=== PATIENT | male | born 1960 | race Caucasian/White ===

== ENCOUNTER 2024-02-25 07:08 | Inpatient (IN) | payer BC ==
[2024-02-25] VITALS (92 sets, daily range): BP systolic 113–206; BP diastolic 72–156
[~2024-02-25] VITALS: Ht 170.2 cm; Wt 88.0 kg
[~2024-02-25 07:08] MED LIST: AMLODIPINE BESYL5 MG PO; AMOX/K CLAV875 M1 PO; ASPIRIN 81 LOW81 MG PO; ATORVASTATIN CA40 MG PO; LEVETIRACETAM500 MG PO; LOSARTAN POTASS50 MG PO; NORMODYNE/TRAN100 MG PO; PLAVIX75 MG PO
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
[2024-02-25] MEDS ORDERED: MIDAZOLAM HCL 2 MG/2 ML VIAL IV ONE (07:25)
[2024-02-25 07:34] LABS: BASO% 0.4 % (0-3); HEMATOCRIT 47.2 % (39.0-50.0); HEMOGLOBIN 15.9 g/dl (14.0-18.0); IMMATURE GRANULOCYTES 0.5 % (0.0-5.0); LYMPH% 29.7 % (15-41); MEAN CELL VOLUME 99.2 fL CALC (80.0-100.0); MEAN CORPUSCULAR HGB 33.4 pG CALC (26.0-32.0); MEAN CORPUSCULAR HGB CONC 33.7 g/dL CAL (32.0-36.0); MONO% 6.1 % (2-13); NEUT# 6.34 thou/uL (1.82-7.42); NEUT% 61.3 % (42-76); RED BLOOD COUNT 4.76 mill/uL (4.70-6.10); RED CELL DISTRI WIDTH 13.1 % (11.5-15.5)
[2024-02-25 07:35] LABS: URINE BILIRUBIN - DIPSTICK Negative (NEGATIVE); URINE BLOOD DIPSTICK Negative (NEGATIVE); URINE GLUCOSE - DIPSTICK 100 mg/dL (NEGATIVE); URINE KETONE 15 mg/dL (NEGATIVE); URINE LEUK ESTERASE Negative (NEGATIVE); URINE NITRITE - DIPSTICK Negative (Negative); URINE PH 5.5 (4.5-8.0); URINE PROTEIN - DIPSTICK 100 mg/dL (NEG-TRACE); URINE SPECIFIC GRAVITY >=1.030; URINE UROBILINOGEN - DIPSTICK 0.2 E.U./dL (0.2)
[2024-02-25] MEDS ORDERED: KETAMINE HCL 50 MG/ML 10 ML VIAL IV ONE (07:35)
[2024-02-25 07:37] LABS: URINE COLOR Yellow
[2024-02-25] MEDS ORDERED: PROPOFOL 100 ML IV ONE (07:40)
[2024-02-25] MEDS ORDERED: ROCURONIUM BROMIDE 10 MG/ML 5ML VIAL IV ONE (07:40)
[2024-02-25 07:46] LABS: ALBUMIN 4.3 g/dL (3.2-5.0); ALKALINE PHOSPHATASE 131 u/l (38-126); BUN 15 mg/dL (8-23); BUN/CREATININE RATIO 17 (12-20 (CALC)); CHLORIDE 105 mmol/l (95-108); CREATININE 0.9 mg/dL (0.7-1.3); ESTIMATED GFR 96 ML/MIN (>=90 (CALC)); ETHYL ALCOHOL 0 mg/dl (0-30); LIPASE 205 u/l (23-300); POTASSIUM 4.2 mmol/l (3.5-5.1); SGOT/AST 60 u/l (19-48); SODIUM 138 mmol/l (137-146); TOTAL PROTEIN 6.9 g/dL (6.3-8.2); URINE SQUAMOUS EPITHELIAL CELL RARE EPI/hpf (0-FEW); URINE WBC 0-2 WBC/hpf (0-5)
[2024-02-25 07:47] LABS: URINE HYALINE CAST FEW lpf (NONE-RARE)
--- NOTE | 2024-02-25 07:47 | NUR ---
PT INTUBATED BY DR.PITA DAIGLE AT THE SIDE. PT INTUBED WITH 7.5 TUBE 23 AT THE TEETH. PROPOFOL INITIATED BY THIS RN.
[2024-02-25 07:49] LABS: ANION GAP 17 (6-22 (CALC)); BILIRUBIN, TOTAL 0.9 mg/dL (0.2-1.3); CARBON DIOXIDE 20 mmol/l (22-30)
[2024-02-25] MEDS ORDERED: SODIUM CHLORIDE 0.9% 1,000 ML IV ONE (07:55)
[2024-02-25 08:19] LABS: PROTHROMBIN TIME 11.2 SECONDS (9.0-12.5)
--- NOTE | 2024-02-25 08:35 | NUR ---
PT TRANSPORTED TO CT WITH THIS NURSE AND RESPIRATORY AT BEDSIDE. PT TOLERATED WELL. NO DISTRESS NOTED. VSS. PT REMAINS INTUBATED WITH PROPOFOL AND IV FLUIDS INFUSING.
[2024-02-25] MEDS ORDERED: LABETALOL HCL 100 MG/20 ML VIAL IV ONE (09:15)
[2024-02-25] MEDS ORDERED: SODIUM CHLORIDE 0.9% 1,000 ML IV PRN (09:35)
--- NOTE | 2024-02-25 09:36 | NUR ---
ADVANCED ET TUBE 2CM PER . ET TUBE NOW AT THE 25CM COLTEN.
[2024-02-25] MEDS ORDERED: PROPOFOL 100 ML IV PRN (09:45)
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
--- NOTE | 2024-02-25 11:11 | NUR ---
BEDSIDE REPORT GIVEN TO ICU NURSE. CARE IS RELINQUISHED.
--- NOTE | 2024-02-25 11:18 | NUR ---
CARE OF PT ASSUMED. REPORT RECEIVED FROM ER NURSE. PT MOVED ONTO HOSPITAL BED WITH ASSISTANCE BY RT AND MOVED TO ROOM 15. SCD'S APPLIED. PT APPROPRIATELY SEDATED AT THIS TIME.
[2024-02-25] MEDS ORDERED: LEVETIRACETAM500 MG PO (11:40)
[2024-02-25] MEDS ORDERED: AMLODIPINE BESYL5 MG PO (11:40)
[2024-02-25] MEDS ORDERED: COZAAR50 MG PO (11:41)
[2024-02-25] MEDS ORDERED: ASPIRINCHW 81MG PO (11:41)
[2024-02-25] MEDS ORDERED: ATORVASTATIN CA20 MG PO (11:41)
[2024-02-25] MEDS ORDERED: PLAVIX75 MG PO (11:42)
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
--- NOTE | 2024-02-25 12:58 | NUR ---
PT SEEN BEDSIDE BY CHICA CONLEY.
[2024-02-25] MEDS ORDERED: hydrALAZINE HCL 20 MG/ML VIAL(1 ML) IV PRN (13:00)
--- NOTE | 2024-02-25 13:30 | NUR ---
SPOKE WITH PT'S SISTER, LILIANA, ON THE PHONE TO OBTAIN MORE PT INFORMATION.
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
--- NOTE | 2024-02-25 16:00 | NUR ---
NO CHANGES TO PT STATUS. TOLERATING CURRENT VENT AND SEDATION SETTINGS WELL. REPOSITIONED FOR COMFORT. ORAL CARE PROVIDED. VSS.
--- NOTE | 2024-02-25 18:00 | NUR ---
NO CHANGES TO PT STATUS. REPOSITIONED. ORAL CARE PROVIDED. TOLERATING CURRENT VENT AND SEDATION SETTINGS WELL. VSS.
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
[2024-02-25] MEDS ORDERED: ATORVASTATIN CALCIUM 20 MG/TAB PO SCH (21:00)
[2024-02-25] MEDS ORDERED: ENOXAPARIN SODIUM 40 MG/0.4 ML SYR SC SCH (21:00)
--- NOTE | 2024-02-25 22:10 | NUR ---
PROPOFOL ADJUSTED DUE TO PT BEING INCREASINGLY MORE ALERT, PULLING AT LINES, ETC. 1000 CC OUTPUT FROM CORREA.
[2024-02-26] VITALS (36 sets, daily range): BP systolic 110–163; BP diastolic 54–121
--- NOTE | 2024-02-26 00:19 | NUR ---
PT IS SEDATED, -2 RAAS. NOT PULLING AT LINES, ETC. AWAKE TO VERBAL/PAINFUL STIMULI.
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
[2024-02-26 05:17] LABS: HEMATOCRIT 45.4 % (39.0-50.0); HEMOGLOBIN 15.2 g/dl (14.0-18.0); MEAN CELL VOLUME 100.7 fL CALC (80.0-100.0); MEAN CORPUSCULAR HGB 33.7 pG CALC (26.0-32.0); MEAN CORPUSCULAR HGB CONC 33.5 g/dL CAL (32.0-36.0); RED BLOOD COUNT 4.51 mill/uL (4.70-6.10); RED CELL DISTRI WIDTH 13.5 % (11.5-15.5)
[2024-02-26 05:28] LABS: ALBUMIN 3.6 g/dL (3.2-5.0); BILIRUBIN, TOTAL 0.8 mg/dL (0.2-1.3); CREATININE 0.7 mg/dL (0.7-1.3); MAGNESIUM 2.2 mg/dL (1.6-2.3); POTASSIUM 3.8 mmol/l (3.5-5.1); TOTAL PROTEIN 6.1 g/dL (6.3-8.2)
--- NOTE | 2024-02-26 05:59 | NUR ---
MORNING CXR COMPLETED. PT RE-POSITIONED. WARM BLANKET APPLIED
--- NOTE | 2024-02-26 06:17 | NUR ---
RT HERE FOR MORNING ABG
--- NOTE | 2024-02-26 07:56 | NUR ---
REPORT RECEIVED FROM NIGHT NURSE. PT DID WELL OVERNIGHT, NO EPISODES OR ISSUES. PT SEEN BY DR. COTO THIS MORNING, ORDERS RECEIVED TO ATTEMPT TO WEAN AND EXTUBATE. PT DID WELL DURING WEANING AND FOLLOWED COMMANDS. EXTUBATED BY RT AT 0750. SATURATING 99% ON RA. TALKING AND HAS CALM DEMEANOR. PT RE-ORIENTED TO PLACE AND TIME. LUNG SOUNDS CLEAR. NO COUGH NOTED. HEART SOUNDS S1S2; NSR ON MONITOR. BS ACTIVE, ABDOMEN SOFT, NON-TENDER. PULSES STRONG ALL EXTREMETIES. DENIES ANY PAIN. RESTRAINTS REMOVED PRIOR TO EXTUBATION. VSS AT THIS TIME. GIVEN CALL LIGHT.
[2024-02-26] MEDS ORDERED: amLODIPine BESYLATE 5 MG/TAB PO SCH (09:00)
[2024-02-26] MEDS ORDERED: CLOPIDOGREL BISULFATE 75 MG/TAB TAB PO SCH (09:00)
[2024-02-26] MEDS ORDERED: LOSARTAN Potassium 50 MG/TAB PO SCH (09:00)
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
--- NOTE | 2024-02-26 11:00 | NUR ---
NO CHANGES TO PT STATUS. DOING WELL ON RA. ASLEEP IN BED. AGAIN, AFTER PT ROOMMATE LEFT PT CALMED DOWN QUICKLY. CALL LIGHT IN REACH. VSS.
--- NOTE | 2024-02-26 11:51 | NUR ---
PT HAD VISIT FROM BROTHER. GIVEN LUNCH TRAY. DENIES ANY NEEDS AT THIS TIME.
--- NOTE | 2024-02-26 12:45 | NUR ---
DR. COTO AT BEDSIDE TO SPEAK WITH PT. PT LIKELY TO BE DISCHARGED TOMORROW. PT AGREEABLE TO PLAN.
--- NOTE | 2024-02-26 14:00 | NUR ---
PER DR. COTO, PT DOWNGRADED TO MED-SURG STATUS. NO CHANGES TO PT STATUS. ASLEEP IN BED. CALL LIGHT AND BELONGINGS WITHIN REACH.
--- NOTE | 2024-02-26 17:09 | NUR ---
NO CHANGES TO PATIENT STATUS. REMAINS CALM. CALL LIGHT IN REACH. VSS.
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
--- NOTE | 2024-02-26 22:06 | NUR ---
PT AMBULATED TO , PT VOIDED, DENIED ANY BURNING OR PAIN DURING URINATION. PT HAS NO COMPLAINTS/NEEDS AT THIS TIME. PT NOW IN BED. V/S STABLE. CALL LIGHT IN REACH
[2024-02-27] VITALS (9 sets, daily range): BP systolic 130–151; BP diastolic 75–96
--- NOTE | 2024-02-27 00:10 | NUR ---
PT RESTING COMFORTABLY, NO COMPLAINTS/NEEDS AT THIS TIME. NO CHANGE IN PT STATUS. V/S STABLE. CALL LIGHT IN REACH
--- NOTE | 2024-02-27 02:00 | NUR ---
PT WAS UP TO BR, NO COMPLICATIONS. NO CHANGES NOTED. PT BACK IN BED. V/S STABLE. CALL LIGHT IN REACH
[2024-02-27 04:22] LABS: HEMOGLOBIN 13.4 g/dl (14.0-18.0); MEAN CELL VOLUME 97.7 fL CALC (80.0-100.0); MEAN CORPUSCULAR HGB 33.8 pG CALC (26.0-32.0); MEAN CORPUSCULAR HGB CONC 34.5 g/dL CAL (32.0-36.0); RED BLOOD COUNT 3.97 mill/uL (4.70-6.10); RED CELL DISTRI WIDTH 13.3 % (11.5-15.5)
[2024-02-27 04:23] LABS: HEMATOCRIT 38.8 % (39.0-50.0)
[2024-02-27 04:35] LABS: ALBUMIN 3.2 g/dL (3.2-5.0); CREATININE 0.8 mg/dL (0.7-1.3); MAGNESIUM 1.9 mg/dL (1.6-2.3); POTASSIUM 3.6 mmol/l (3.5-5.1); TOTAL PROTEIN 5.6 g/dL (6.3-8.2)
[2024-02-27 04:37] LABS: BILIRUBIN, TOTAL 1.5 mg/dL (0.2-1.3)
--- NOTE | 2024-02-27 04:44 | NUR ---
PT RESTING COMFORTABLY. NO CHANGES NOTED. V/S STABLE. CALL LIGHT IN REACH
--- NOTE | 2024-02-27 08:31 | NUR ---
MD AT BEDSIDE ROUNDING ON PATIENT, PATIENT IS TO BE DISCHARGED TODAY. NO NEW ORDERS AT THHIS TIME.
--- NOTE | 2024-02-27 09:17 | NUR ---
PATIENT READY FOR DISCHARGE, CALLED 3 FAMILY MEMBERS FOR PATIENT TO BE PICKED UP. NO ANSWER, VOICE MAIL LEFT.
--- NOTE | 2024-02-27 10:04 | NUR ---
PATIENT DISCHARGE HOME WITH SIGNIFIGANT OTHER, NO PAIN, VITALS ARE STABLE, A/O X3.
== END 2024-02-27 10:15 | disposition home or self-care (01) | DRG 101 ==
LOC: ED 07:08 → ED-I 08:29 → ED 08:29 → ED-I 09:21 → ED 09:47 → ED-I 09:48 → ICU 02-26 19:00
PROVIDERS: Family Medicine; ADMIT Internal Medicine; ATTEND Internal Medicine
PROC: 0BH17EZ Insertion of Endotracheal Airway into Trachea, Via Natural or Artificial Opening (ICD-10-PCS; principal; 2024-02-25)
PROC: 5A1935Z Respiratory Ventilation, Less than 24 Consecutive Hours (ICD-10-PCS; 2024-02-25)
PROC: 0T9B70Z Drainage of Bladder with Drainage Device, Via Natural or Artificial Opening (ICD-10-PCS; 2024-02-25)
DX: G40.909 Epilepsy, unspecified, not intractable, without status epilepticus (principal); E87.20 Acidosis, unspecified; I10 Essential (primary) hypertension; S00.31XA Abrasion of nose, initial encounter; W19.XXXA Unspecified fall, initial encounter; Y92.009 Unspecified place in unspecified non-institutional (private) residence as the place of occurrence of the external cause; Z86.73 Personal history of transient ischemic attack (TIA), and cerebral infarction without residual deficits; Z20.822 Contact with and (suspected) exposure to COVID-19
CPT/HCPCS: J0360; J1650; J2704